=== PATIENT | female | born 1965 | race Caucasian/White ===

== ENCOUNTER → 2018-07-10 17:54 | Outpatient (CLI) | payer BC, SELFPAY ==
[2018-07-10 18:58] LABS: Basophils % 0.4 % (0.1-2.0); Eosinophils # 0.1 K/mm3 (0.0-0.4); Eosinophils % 1.2 % (0.1-12.0); Hematocrit 40.1 % (37.0-47.0); Hemoglobin 13.4 g/dL (12.2-16.2); Lymphocytes # 2.8 K/mm3 (0.7-4.5); Mean Corpuscular HGB Conc 33.4 g/dL (31.8-35.4); Mean Corpuscular Hemoglobin 29.8 pg (27.0-31.2); Mean Corpuscular Volume 89.3 fl (81-99); Monocytes # 0.5 K/mm3 (0.1-1.0); Monocytes % 5.1 % (1.7-9.3); Neutrophils # 5.9 K/mm3 (1.8-7.8); Neutrophils % 63.3 % (37.0-80.0); Platelet Count 363 K/mm3 (142-424); Red Blood Count 4.49 M/mm3 (4.20-5.40); Red Cell Distribution Width 13.2 % (11.5-17.5); White Blood Count 9.3 K/mm3 (4.8-10.8)
[2018-07-10 19:29] LABS: Alanine Aminotransferase 29 U/L (12-78); Albumin Level 3.7 gm/dL (3.4-5.0); Alkaline Phosphatase 81 U/L (46-116); Anion Gap 13.9 mEq/L (5-15); Aspartate Amino Transferase 11 U/L (15-37); Bilirubin,Total 0.2 mg/dL (0.2-1.0); Blood Urea Nitrogen 14 mg/dL (7-18); Calcium 9.4 mg/dL (8.5-10.1); Carbon Dioxide 27 mmol/L (21.0-32.0); Chloride 105 mmol/L (98-107); Cholesterol 240 mg/dL (140-200); Creatinine,Serum 0.84 mg/dL (0.55-1.02); Estimated Glomerular Filt Rate 71 ml/min (>60); GFR (African American) 86 ML/MIN (>60); Globulin 3.7 gm/dl (1.3-3.2); Glucose 108 mg/dL (74-106); HDL Cholesterol 48 mg/dL (29-89); LDL Cholesterol 175 mg/dL (0-130); Potassium 3.9 mmoL/L (3.5-5.1); Sodium 142 mmol/L (136-145); T4 (Thyroxine) 9.5 ug/dl (4.7-13.3); Thyroid Stimulating Hormone 1.08 uIU/ml (0.358-3.740); Total Protein,Serum 7.4 gm/dL (6.4-8.2); Triglycerides 87 mg/dL (30-200); VLDL Cholesterol 17 mg/dL (0-40)
[2018-07-12 10:31] LABS: Hep A Ab, IgM Negative (Negative); Hepatitis B Core Antibody IgM Negative (Negative); Hepatitis B Surface Antigen Negative (Negative)
[2018-07-12 10:54] LABS: Hepatitis C Antibody <0.1 s/co ratio (0.0-0.9); Vitamin D 25 Hydroxy 38.7 ng/mL (30.0-100.0)
== END ==
PROVIDERS: Visit Provider Emergency Medicine
DX: R53.83 Other fatigue (principal)
CPT/HCPCS: 80053; 80061; 80074; 82652; 84436; 84443; 85025

== ENCOUNTER → 2018-08-02 12:43 | Outpatient (CLI) | payer BC, SELFPAY ==
--- NOTE | 2018-08-02 13:49 | CT_ITS ---
CT chest wo con HISTORY: Recurrent bronchitis, cough, congestion, current smoker ITS.REASON: shortness of breath ORDERING PHYSICIAN: Neftali Rivera MD PATIENT AGE: 52 years COMPARISON: None Technique: Axial images obtained following the administration of 75 mL of Optiray 350 . Sagittal, and coronal reformatted images are also generated and reviewed. All CT scans at the facility use one or more dose reduction, viz: automated exposure control, ma/kV adjustment per patient size (including targeted exams where dose is matched to indication, i.e. head), or iterative reconstruction technique. FINDINGS: There is an isodense nodule present in the left lobe of the thyroid gland. It at least measures 14 mm and may be larger incompletely imaged superiorly. Thyroid ultrasound may be of further value. There is some calcification in the aorta and great vessels. Small axillary nodes are also present. There are coronary artery calcifications present with mild thickening of the pericardium anteriorly suggesting a small pericardial effusion. Increased soft tissue density is present at the region of the evon and subcarinal area measuring 2.8 x 2.9 cm . There is narrowing of the right mainstem bronchus at this level secondary to this soft tissue lesion in the subcarinal area. This lesion may be originating in the subcarinal tissues and extending into the right mainstem bronchus, eccentrically pressing the right mainstem bronchus or could be originating from the right mainstem bronchus. Bronchoscopy is suggested for further evaluation. Neoplasm is considered. This abnormality is also causing some mild contour deformity and narrowing of the left mainstem bronchus. There are centrilobular emphysematous changes with hyperexpansion and attenuation of the peripheral pulmonary vessels consistent with COPD. There is a 4 mm noncalcified subpleural nodule in the region of the right upper lobe anteriorly S3, #57 calcified granulomas are present in the right lower lobe superior segment. No lobar consolidation or collapse is evident. There is mild atelectatic change or fibrotic changes in the right middle lobe medially. Upper abdominal images have an unremarkable unenhanced appearance. There are no acute bony findings. IMPRESSION: 1. 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 This is consistent with neoplasm and could be arising from the subcarinal region or the right mainstem bronchus. Bronchoscopy is recommended. This lesion is also causing some indentation upon the medial aspect of the left mainstem bronchus. 2. Centrilobular emphysema with COPD. 3. Coronary artery calcifications with small pericardial
--- NOTE | 2018-08-02 14:08 | MM_ITS ---
MM Dig screening mamm BI w/CAD CAD Screening COMPARISON: None, this is baseline INDICATION: There is no personal or family history of breast cancer TECHNIQUE: Standard CC and MLO images were obtained. R2 CAD reviewed. FINDINGS: Moderate scattered fibroglandular densities are seen throughout both breasts. There are couple benign-appearing microcalcifications deep within the left breast. There is no suspicious lesion and there are no suspicious microcalcifications. There are small nodes in both axilla. IMPRESSION: Moderate diffuse breast density with no suspicious lesion seen BI-RADS Category: 2 Benign Finding(s) RECOMMENDED FOLLOW-UP: 1YR - 1 YEAR FOLLOW-UP (A letter has been sent to the patient regarding results of the study.)
== END ==
PROVIDERS: PCP Emergency Medicine; Visit Provider Emergency Medicine
DX: Z12.31 Encounter for screening mammogram for malignant neoplasm of breast (principal); R06.02 Shortness of breath
CPT/HCPCS: 71250; 77067; 94060; 94640

== ENCOUNTER → 2020-03-29 08:07 | Outpatient (CLI) | payer SELFPAY ==
--- NOTE | 2020-03-29 08:08 | CT_ITS ---
PROCEDURE: CT HEART W CALCIUM SCORE CLINICAL HISTORY: hypertension COMPARISON: No exams were available for comparison TECHNIQUE: Axial images obtained with sagittal and coronal reformats. All CT scans at the facility use one or more dose reduction, viz: automated exposure control, ma/kV adjustment per patient size (including targeted exams where dose is matched to indication, i.e. head), or iterative reconstruction technique. FINDINGS: Coronary artery calcium score is 1370. Extensive calcific plaque burden with very high cardiovascular disease risk Incidental findings include mild thickening of the pericardium measuring up to 10 mm. There are changes of COPD with scattered areas of scarring. PEG catheter is present. IMPRESSION: Extensive calcific plaque burden with very high cardiovascular disease risk COPD, pericardial effusion, PEG catheter present Dictated by: Ministerio Robison MD 03/29/2020 13:27 Ministerio Robison MD in [place] 03/29/2020 13:27
== END ==
PROVIDERS: PCP Emergency Medicine; Visit Provider Emergency Medicine
DX: Z13.6 Encounter for screening for cardiovascular disorders (principal); I10 Essential (primary) hypertension
CPT/HCPCS: 75571

== ENCOUNTER → 2020-04-16 07:16 | Outpatient (CLI) | payer BC, SELFPAY ==
--- NOTE | 2020-04-16 07:16 | NM_ITS ---
APPROVED REPORT Exam: Nuclear Stress Test Indication: Abnormal CT Calcium Score, HTN, High cholesterol, Family history Patient Location: Outpatient Stress Tech: Felisha Maliha NM Tech:Constance Nur, ARRT, RT (R)(N) Ht: 5 ft 3 in Wt: 135 lbs Bra Size: 36B HR: 67 bpm BP: 116/73 mmHg BSA: 1.64 m2 BMI: 23.9 Procedure: Patient received a 0.4 mg of intravenous Lexiscan, resting heart rate 67 bpm, resting blood pressure 116/73 mmHg, with Lexiscan maximum heart rate achived was 90 bpm which is Less than 85 % of the maximum predicted heart rate and blood pressure was 135/73 mmHg. With Lexiscan, patient denied any complaint of chest pain. Electrocardiogram Resting electrocardiogram shows sinus rhythm, with Lexiscan there is less than 1.[address] segment depression noted from the baseline EKG. The EKG portion of the Lexiscan is nondiagnostic. Cardiac Stress and Resting SPECT Images: Cardiac Stress and Resting SPECT images were obtained using technetium 99m Myoview 32.4 mCi stress and 10.65 mCi at rest. Gated SPECT for analysis of segmental wall motion and calculation of the ejection fraction also done. Cardiac stress and resting SPECT images show uniform myocardial activity without segmental perfusion abnormality, computer derived ejection fraction is 56% with no regional wall motion abnormality, right ventricle is normal size and contractility. Conclusion: 1. The EKG portion of the Lexiscan is nondiagnostic. 2. No scintigraphic evidence of reversible ischemia seen, computer derived ejection fraction 56% with no regional wall motion abnormality, right ventricle is normal size and contractility. 3. Normal Lexiscan Myoview study. Electronically signed by : Erik Delgadillo, 04/21/2020 06:51:24
--- NOTE | 2020-04-16 08:51 | HMH.ITSHM ---
Current Home Medications as stated by this patient Lev Dorantes or phlebotomy services representative. []OMEPRAZOLE LEVOTHYROXINE GUAIFENSIN GABAPENTIN BUPROPION BISOPROLOL ATORVASTATIN ASA ALBUTEROL
--- NOTE | 2020-04-16 09:20 | CA_ITS ---
APPROVED REPORT Exam: Pharmacologic Technologist: Sherie Chavez, Ht: 5 ft 3 in Wt: 139 lbs BSA: 1.66 m2 HR: 67 bpm BP: 116/73 mmHg Medical History Medications: Aspirin,,,,, Albuterol,,,,, Bisprolol,,,,, BuPROPION,,,,, BREo,,,,, AtorvaASTATIN,,,,, LevothROXINE,,,,, Omepazole,,,,, GabaENTIN,,,,, Stress Test Details Test: LEXISCAN HR Resting HR: 78 bpm Max Heart Rate (APMHR): 165 bpm Max HR Achieved: 98 bpm Target HR (85% APMHR): 140 bpm % of APMHR: 59 Recovery HR: 74 bpm BP Resting BP: 116/73 mmHg Max BP: 144/66 mmHg Recovery BP: 113.0/69.0 mmHg ECG Clinical Exercise duration: 05:07 min Highest Stage Achieved: Exercise capacity: 1.0 METs Stress ECG Conclusion Resting EKG: NSR, normal Symptoms: Mild SOA, malaise, stomach discomfort. No CP Arrhythmias/Ectopy: Rare PAC ST-T Changes: No significant changes Conclusion: Unremarkable Lexiscan stress, Myoview images reported separately Electronically signed by : Jl Toledo, 04/19/2020 12:19:42
== END ==
PROVIDERS: PCP Emergency Medicine; Visit Provider Internal Medicine Cardiovascular Disease
DX: R06.00 Dyspnea, unspecified (principal); R93.1 Abnormal findings on diagnostic imaging of heart and coronary circulation; Z85.118 Personal history of other malignant neoplasm of bronchus and lung; Z85.819 Personal history of malignant neoplasm of unspecified site of lip, oral cavity, and pharynx; Z87.891 Personal history of nicotine dependence
CPT/HCPCS: 78452; 93017; 93306; A9502; J2785

== ENCOUNTER → 2022-01-27 21:18 | Outpatient (CLI) | payer BC, SELFPAY ==
[2022-01-27 17:15] LABS: Chol/HDL Ratio 3.6 (1-3.5); Cholesterol 174 mg/dl (140-200); HDL Cholesterol 49 mg/dl (40-60); Triglycerides 105 mg/dl (30-150); VLDL Cholesterol 21 mg/dL (0-40)
[2022-01-27 17:25] LABS: Direct LDL Cholesterol 94.16 mg/dL (100-129)
== END ==
PROVIDERS: PCP Emergency Medicine; Visit Provider Emergency Medicine
DX: E03.9 Hypothyroidism, unspecified (principal); R93.1 Abnormal findings on diagnostic imaging of heart and coronary circulation; Z79.899 Other long term (current) drug therapy
CPT/HCPCS: 80061

== ENCOUNTER → 2022-02-08 13:59 | Outpatient (CLI) | payer BC, SELFPAY ==
--- NOTE | 2022-02-08 13:59 | MM_ITS ---
PROCEDURE INFORMATION: Exam: MG Bilateral Screening 3D Mammography Exam date and time: 02/08/2022 1:51 PM Age: 56 years old Clinical indication: Screening examination TECHNIQUE: Imaging protocol: Bilateral Screening tomosynthesis and 2D mammography including computer-aided detection (CAD) when performed. COMPARISON: [facility] MM Dig screening mamm BI w/CAD 08/02/2018 2:53 PM FINDINGS: MAMMOGRAPHY: Breast composition: There are scattered areas of fibroglandular density. Mass: No suspicious mass. Architectural distortion: None. Calcifications: No suspicious calcifications. Asymmetric density: None. Skin thickening: None. Axillary adenopathy: None. IMPRESSION: No mammographic evidence of malignancy. Annual screening is recommended unless otherwise clinically indicated. ASSESSMENT: BI-RADS Category 1: Negative
== END ==
PROVIDERS: PCP Emergency Medicine; Visit Provider Emergency Medicine
DX: Z12.31 Encounter for screening mammogram for malignant neoplasm of breast (principal)
CPT/HCPCS: 77063; 77067

== ENCOUNTER 2023-09-12 10:22 | Outpatient (CLI) | payer BC, SELFPAY ==
[2023-09-12 11:12] LABS: Basophils % 0.4 % (0.1-2.0); Eosinophils # 0.1 K/mm3 (0.0-0.4); Hematocrit 29.2 % (37.0-47.0); Hemoglobin 9.1 g/dL (12.2-16.2); Lymphocytes % 9.9 % (10-50); Mean Corpuscular HGB Conc 31.3 g/dL (31.8-35.4); Mean Corpuscular Hemoglobin 27.5 pg (27.0-31.2); Mean Platelet Volume 7.5 fl (7.4-10.4); Monocytes # 0.4 K/mm3 (0.1-1.0); Monocytes % 4.1 % (1.7-9.3); Neutrophils # 8.3 K/mm3 (1.8-7.8); Neutrophils % 84.7 % (37.0-80.0); Platelet Count 460 K/mm3 (142-424); Red Blood Count 3.32 M/mm3 (4.20-5.40); Red Cell Distribution Width 16.5 % (11.5-17.5); White Blood Count 9.8 K/mm3 (4.8-10.8)
[2023-09-12 11:42] LABS: Alanine Aminotransferase 16 U/L (12-78); Albumin Level 3.6 g/dl (3.5-5.0); Albumin/Globulin Ratio 1.2 (1.1-1.8); Alkaline Phosphatase 68 U/L (38-126); Anion Gap 10.4 mEq/L (5-15); Aspartate Amino Transferase 30 U/L (14-36); Bilirubin,Total 0.5 mg/dl (0.2-1.3); Blood Urea Nitrogen 12 mg/dl (7-17); Calcium 9.8 mg/dl (8.4-10.2); Carbon Dioxide 31 mmol/L (22.0-30.0); Chloride 103 mmol/L (98-107); Chol/HDL Ratio 5.6 (1-3.5); Cholesterol 178 mg/dl (140-200); Estimated Glomerular Filt Rate 86 ml/min (>60); GFR (African American) 104 ML/MIN (>60); Globulin 3.1 g/dL (1.3-3.2); Glucose 97 mg/dl (74-100); HDL Cholesterol 32 mg/dl (40-60); Potassium 4.4 mmoL/L (3.5-5.1); Sodium 140 mmol/L (136-145); Total Protein,Serum 6.7 g/dl (6.3-8.2); Triglycerides 90 mg/dl (30-150); VLDL Cholesterol 18 mg/dL (0-40)
[2023-09-12 11:53] LABS: Direct LDL Cholesterol 102.52 mg/dL (100-129)
[2023-09-12 12:00] LABS: 25-OH Vitamin D, Total 40.7 ng/mL (30-100)
[2023-09-12 12:12] LABS: Thyroid Stimulating Hormone 0.96 uIU/mL (0.465-4.68)
[2023-09-12 12:53] LABS: Hemoglobin A1C 5.6 % (4.0-6.0)
[2023-09-12 15:41] LABS: Iron 53 ug/dL (37-170)
[2023-09-12 15:50] LABS: Total Iron Binding Capacity 217 ug/dL (265-497)
== END 2023-09-12 23:59 | disposition home or self-care (01) ==
PROVIDERS: PCP Family Medicine; Visit Provider Physician Assistant
DX: E61.1 Iron deficiency (principal); I10 Essential (primary) hypertension; Z85.819 Personal history of malignant neoplasm of unspecified site of lip, oral cavity, and pharynx; D64.9 Anemia, unspecified; Z79.899 Other long term (current) drug therapy
CPT/HCPCS: 36415; 80053; 80061; 82306; 83036; 83540; 83550; 84443; 85025

== ENCOUNTER 2024-08-15 12:30 | Outpatient (CLI) | payer OTHER, SELFPAY ==
[2024-08-15 18:41] LABS: Basophils % 0.5 % (0.1-2.0); Eosinophils # 0.1 K/mm3 (0.0-0.4); Eosinophils % 0.9 % (0.1-12.0); Hematocrit 35.5 % (37.0-47.0); Hemoglobin 10.6 g/dL (12.2-16.2); Lymphocytes # 1.1 K/mm3 (0.7-4.5); Lymphocytes % 12.5 % (10-50); Mean Corpuscular HGB Conc 29.9 g/dL (31.8-35.4); Mean Corpuscular Hemoglobin 26.6 pg (27.0-31.2); Mean Corpuscular Volume 89.2 fl (81-99); Mean Platelet Volume 9.6 fl (7.4-10.4); Monocytes # 0.6 K/mm3 (0.1-1.0); Monocytes % 6.4 % (1.7-9.3); Neutrophils # 6.9 K/mm3 (1.8-7.8); Neutrophils % 79.4 % (37.0-80.0); Platelet Count 382 K/mm3 (142-424); Red Blood Count 3.98 M/mm3 (4.20-5.40); Red Cell Distribution Width 16.2 % (11.5-17.5); White Blood Count 8.7 K/mm3 (4.8-10.8)
[2024-08-15 18:57] LABS: Alanine Aminotransferase 16 U/L (12-78); Albumin Level 4.4 g/dl (3.5-5.0); Albumin/Globulin Ratio 1.3 (1.1-1.8); Alkaline Phosphatase 74 U/L (38-126); Anion Gap 14.5 mEq/L (5-15); Aspartate Amino Transferase 25 U/L (14-36); Bilirubin,Total 0.5 mg/dl (0.2-1.3); Blood Urea Nitrogen 19 mg/dl (7-17); Calcium 10.1 mg/dl (8.4-10.2); Carbon Dioxide 30 mmol/L (22.0-30.0); Chloride 99 mmol/L (98-107); Creatine Kinase 38 U/L (30-135); Estimated Glomerular Filt Rate 64 ml/min (>60); GFR (African American) 78 ML/MIN (>60); Globulin 3.3 g/dL (1.3-3.2); Glucose 82 mg/dl (74-100); Potassium 4.5 mmoL/L (3.5-5.1); Sodium 139 mmol/L (136-145); Total Protein,Serum 7.7 g/dl (6.3-8.2)
[2024-08-15 19:04] LABS: C-Reactive Protein 10.4 mg/L (0-4)
== END 2024-08-15 23:59 | disposition home or self-care (01) ==
LOC: LAB.DROPOF 08-16 11:23
PROVIDERS: PCP Family Medicine; Visit Provider Family Medicine
DX: I65.29 Occlusion and stenosis of unspecified carotid artery (principal); Z95.828 Presence of other vascular implants and grafts; I95.9 Hypotension, unspecified; D64.9 Anemia, unspecified
CPT/HCPCS: 80053; 82550; 85025; 86140